=== PATIENT | male | born 1990 | race American Indian/Alaskan Native ===

== ENCOUNTER 2018-07-19 20:51 | Emergency (ER) | payer OTHER ==
--- NOTE | 2018-07-19 21:26 | Emergency Department Report ---
Chief Complaint: Skin/Abscess/Foreign Body Stated Complaint: SPIDER BITE ON RIGHT HIP Time Seen by Provider: 07/19/18 21:24 - HPI History of Present Illness: Pt presents to the ED with c/o a lump to the right hip denies seeing anything bite him states there has been swelling, erythema, and a "black hank" denies any drainage, no fever never had before No PMHx no allergies to medications last tetanus immunization 2017 MSE screening note: Focused history performed ED Disposition for MSE Condition: Stable
--- NOTE | 2018-07-19 22:07 | Emergency Department Report ---
Abscess Boil HPI - HPI Chief Complaint: Skin/Abscess/Foreign Body Stated Complaint: SPIDER BITE ON RIGHT HIP Time Seen by Provider: 07/19/18 21:24 Duration: 1 Day Location: Lower Extremity (right hip) Severity: Mild History: Yes Pain, No Fever, No Purulent Drainage, No Numbness, No Foreign Body, No Previous History HPI: Swelling, pain to the right hip with some redness and tenderness with palpation. No discharge noted. Was present this morning small the past then has increased of the course of the day. No fever, no trauma Home Medications: Previous Rx's Medication Instructions Recorded Last Taken Type Chlorhexidine Gluconate [Hibiclens] 10 ml TP BID #240 liquid 07/19/18 Unknown Rx Sulfamethoxazole/Trimethoprim 2 each PO BID #40 tablet 07/19/18 Unknown Rx [Bactrim DS TAB] Allergies/Adverse Reactions: Allergies Allergy/AdvReac Type Severity Reaction Status Date / Time No Known Allergies Allergy Unverified 07/19/18 21:01 ED Review of Systems ROS: Stated complaint: SPIDER BITE ON RIGHT HIP Other details as noted in HPI Constitutional: denies: chills, fever Eyes: denies: eye pain, eye discharge, vision change ENT: denies: ear pain, throat pain Respiratory: denies: cough, shortness of breath, wheezing Cardiovascular: denies: chest pain, palpitations Endocrine: no symptoms reported Gastrointestinal: denies: abdominal pain, nausea, diarrhea Genitourinary: denies: urgency, dysuria Musculoskeletal: denies: back pain, joint swelling, arthralgia Skin: change in color. denies: rash, lesions Neurological: denies: headache, weakness, paresthesias Psychiatric: denies: anxiety, depression Hematological/Lymphatic: denies: easy bleeding, easy bruising ED Past Medical Hx - Past Medical History Previous Medical History?: No - Surgical History Past Surgical History?: No - Social History Smoking Status: Never Smoker Substance Use Type: None - Medications Home Medications: Home Medications Medication Instructions Recorded Confirmed Last Taken Type Chlorhexidine Gluconate [Hibiclens] 10 ml TP BID #240 liquid 07/19/18 Unknown Rx Sulfamethoxazole/Trimethoprim 2 each PO BID #40 tablet 07/19/18 Unknown Rx [Bactrim DS TAB] ED Abscess Boil Physical Exam - Exam General: Vital signs noted. No distress. Alert and acting appropriately. Front/Back of Body, Lg (Color): 1 - Indurated abscess like area to the right hip. With just local cellulitis. No discharge appreciated. No lymphangitis. No fluctuance. Size: 2 cm Exam: Yes Tenderness, No Fluctuance, No Surrounding Cellulites/Erythema, No Lymphangitis, No Crepitation, No Heart Murmur, No Normal Neurologic Exam, No Normal Circulation ED Course Vital Signs 07/19/18 21:24 Temperature 98.1 F Pulse Rate 83 Respiratory 18 Rate Blood Pressure 144/67 O2 Sat by Pulse 98 Oximetry Critical care attestation.: If time is entered above; I have spent that time in minutes in the direct care of this critically ill patient, excluding procedure time. ED Medical Decision Making - Medical Decision Making Ronnie of-year-old male with a wound abscess wound. The right hip worsening since onset this morning pain with palpation. No discharge. Will continue with warm compresses and antiembolic medication will follow-up for reevaluation in 2- 3 days ED Disposition Clinical Impression: Insect bite Disposition: DC-01 TO HOME OR SELFCARE Is pt being admited?: No Does the pt Need Aspirin: No Condition: Stable Instructions: Insect Bite or Sting (ED), Cellulitis (ED) Referrals: FRANCISCO J ROBERTSON MD [Primary Care Provider] - 3-5 Days
[2018-07-20 19:46] VITALS: BP 144/67
== END 2018-07-19 22:18 | disposition home or self-care (01) ==
LOC: ED 20:51
DX: S70.261A Insect bite (nonvenomous), right hip, initial encounter (principal); W57.XXXA Bitten or stung by nonvenomous insect and other nonvenomous arthropods, initial encounter; Y93.89 Activity, other specified; Y92.89 Other specified places as the place of occurrence of the external cause; Y99.8 Other external cause status
CPT/HCPCS: 99282